=== PATIENT | female | born 1940 | race Caucasian/White ===

== ENCOUNTER 2019-08-28 10:07 | Emergency (ER) | payer MEDICARE, OTHER, SELFPAY ==
[2019-08-28 10:11] VITALS: BP 187/85; PULSE 104; RESP 16; TEMP 36.9; O2SAT 97; BMI 30.7
--- NOTE | 2019-08-28 10:24 | CT_ITS ---
WS: [id number] CT scan of the abdomen and pelvis with IV contrast. Additional two-dimensional coronal and sagittal reconstruction was performed. 08/28/2019 Clinical Data: DIVERTICULOSIS Comparison: CT abdomen and pelvis, 04/08/2016. DLP: 859.[address] scans at [facility] use at least one of these dose optimization techniques: automat ed exposure control; mA and/or kV adjustment per patient size (includes targeted exams where dose is matched to clinical indication); or iterative reconstruction. Findings: The lower lungs show no nodules, masses or effusions. The liver, gallbladder, spleen, adrenal glands and pancreas are normal. There are 2 incidental cysts in the right lobe of the liver unchanged. The kidneys show equal bilateral contrast excretion with no cyst or masses. The abdominal aorta is normal in size with calcification in the wall. No appendicitis or diverticulitis is seen. The stomach and colon are unremarkable. There are air-flui d levels in the small bowel which can be seen with gastroenteritis. No abscess, adenopathy, ascites, mass, obstruction or free air is seen. The bladder is unremarkable. The uterus is absent. There is a small fat-containing right inguinal her giovanna. The bones of the lower thorax, lumbar spine, pelvis, and hips are not remarkable. CT/CT abdomen pelvis w con* 20022 Impression: 1. Scattered air-fluid levels in the small bowel which can be seen with gastroe nteritis. 2. Hysterectomy.
[2019-08-28 10:26] VITALS: BP 187/85; RESP 17; O2SAT 95
--- NOTE | 2019-08-28 10:26 | ED_ITS ---
HPI - General Adult General: Chief complaint: Abdominal Pain Stated complaint: soft stools Time Seen by Provider: 08/28/19 10:09 History of Present Illness: HPI narrative: Patient comes in with complaints of a greasy foul-smelling yellow stool over the last couple days. Imodium not helping with the loose stool. Denies fever chills abdominal pain. No new medications or change in diet no exposure to any illnesses. MD complaint: Diarrhea Onset (ago): day(s) (2) Associated symptoms: Deny chest pain, decreased appetite, dyspnea, fevers/chills , headache(s), nausea, rash, vomiting or weakness Review of Systems Const: Denies: fever, chills or body aches Eyes: Denies: change in vision or blurry vision ENMT: Denies: throat pain or nasal congestion Card: Denies: chest pain or shortness of breath on exertion Resp: Denies: shortness of breath, productive cough or non-productive cough GI: Reports: diarrhea, change in bowel habits, change in stool character ([place] and yellow) and other; Denies: nausea or vomiting Musc: Denies: extremity pain Skin/Breast: Denies: rash Neuro: Denies: headache Psych: Denies: anxiety or depression Scott/Lymph: Denies: easy bruising PFSH ED PFSH: Medical History (Updated 07/31/19 @ 14:30 by Tara Meng MD) Chest pain at rest CKD (chronic kidney disease) HTN (hypertension) Varicose veins of left lower extremity with other complications Social History Smoking and tobacco status: former smoker History of recent travel: No Physical Exam Const: COMMON NORMALS: no apparent distress, average body habitus and oriented x3 HENMT: COMMON NORMALS: normocephalic HEAD & SCALP: normal to inspection and normocephalic FACE & SINUS: normal facial exam Eye: COMMON NORMALS: conjunctivae normal GENERAL EYE: normal appearance of both eyes CONJUNCTIVA: Yes conjunctivae normal Neck/C-Spine: COMMON NORMALS: no JVD Chest: COMMONS NORMALS: inspection of chest normal Resp: COMMON NORMALS: normal respiratory effort and clear to auscultation bilaterally AUSCULTATION: clear to auscultation bilaterally Cardio: COMMON NORMALS: no JVD, regular rate and regular rhythm RATE: regular rate RHYTHM: regular rhythm GI: COMMON NORMALS: normal to inspection, nondistended, normoactive bowel sounds Extremity: COMMON NORMALS: normal to inspection and full ROM Neuro: COMMON NORMALS: oriented x3 Course Vital Signs: Vital signs: Vital Signs Temperature 98.4 F 08/28/19 10:11 Pulse Rate 104 H 08/28/19 10:11 Respiratory Rate 17 08/28/19 10:26 Blood Pressure 187/85 08/28/19 10:26 Pulse Oximetry 95 08/28/19 10:26 MDM - General Adult MDM Narrative: Medical decision making narrative: Will premedicate patient she had a allergic reaction to contrast back in 1989 discussed process with the patient patient is okay with Lab Data: Labs: Lab Results 08/28/19 Range/Units 10:32 WBC 7.9 (4.0-10.0) 10^3/ uL RBC 5.16 (4.1-5.3) 10^6/u L Hgb 15.2 (11.5-15.3) g/dL Hct 46.2 (37.0-47.0) % MCV 89.5 (81-99) fL MCH 29.5 (28.0-34.0) pg MCHC 32.9 (30.0-36.0) g/dL RDW 12.4 (12.1-15.1) % Plt Count 267 (130-400) 10^3/c mm MPV 9.5 (7.4-10.4) fL Neut % (Auto) 80.3 % Lymph % (Auto) 11.2 % [place] % (Auto) 7.5 % Eos % (Auto) 0.3 % Baso % (Auto) 0.3 % Neut # (Auto) 6.4 (1.8-7.7) 10^3/u L Lymph # (Auto) 0.9 (0.8-4.8) 10^3/u L Sanborn # (Auto) 0.6 (0.2-0.9) 10^3/u L Eos # (Auto) 0.0 (0.0-0.8) 10^3/u L Baso # (Auto) 0.0 (0.0-0.1) 10^3/u L Nucleated RBC % (a uto) 0 % Nucleated RBCs # 0.0 /100WBC Discharge Plan Discharge Prescriptions: No Action furosemide [Lasix] 20 mg tablet 20 mg PO DAILY PRNRF: 0 potassium chloride 10 mEq capsule, extended release 10 meq PO DAILY PRNRF: 0 amlodipine 10 mg tablet 10 mg PO DAILY 90 Days Qty: 90 RF: 3 metoprolol succinate [Toprol XL] 25 mg tablet extended release 24 hr 25 mg PO DAILY 30 Days Qty: 30 RF: 12 Coding Level of Care Code ED Fish Roe Technician for Chg Fwd Exam Comprehensive
[2019-08-28 10:37] LABS: Basophils % 0.3 %; Eosinophils % 0.3 %; Hematocrit 46.2 % (37.0-47.0); Hemoglobin 15.2 g/dL (11.5-15.3); Lymphocytes # 0.9 10^3/uL (0.8-4.8); Lymphocytes % 11.2 %; Mean Corpuscular HGB Conc 32.9 g/dL (30.0-36.0); Mean Corpuscular Hemoglobin 29.5 pg (28.0-34.0); Mean Corpuscular Volume 89.5 fL (81-99); Mean Platelet Volume 9.5 fL (7.4-10.4); Monocytes # 0.6 10^3/uL (0.2-0.9); Monocytes % 7.5 %; Neutrophils # 6.4 10^3/uL (1.8-7.7); Neutrophils % 80.3 %; Nucleated Red Blood Cells % 0 %; Platelet Count 267 10^3/cmm (130-400); Red Blood Count 5.16 10^6/uL (4.1-5.3); Red Cell Distribution Width 12.4 % (12.1-15.1); White Blood Count 7.9 10^3/uL (4.0-10.0)
[2019-08-28 10:55] LABS: Alanine Aminotransferase 22 U/L (0-33); Alkaline Phosphatase 93 IU/L (35-105); Anion Gap 17.7 (5-19); Aspartate Amino Transferase 21 U/L (0-32); Blood Urea Nitrogen 22 mg/dL (8-23); Calcium 9.7 mg/dL (8.5-10.5); Carbon Dioxide 23 mmol/L (22-29); Chloride 103 mmol/L (98-107); Glucose 144 mg/dL (65-115); Osmolality Calculated 287 mOsm/kg (285-295); Potassium 4.7 mmol/L (3.5-5.1); Sodium 139 mmol/L (136-145); Total Bilirubin 0.4 mg/dL (0.15-1.2)
[2019-08-28 11:00] LABS: Magnesium 1.9 mg/dL (1.7-2.3)
[2019-08-28] MEDS: diphenhydrAMINE 50 mg/mL SDV 1mL 25 MG IVP (11:04)
[2019-08-28] MEDS: iodixanol 320 mg/mL 100mL Btl IV (11:22)
[2019-08-28 11:59] LABS: Add Urine Microscopic? NO
[2019-08-28 12:03] LABS: Bilirubin Urine Neg (NEGATIVE); Blood Urine Neg (Negative); Glucose Urine UA Norm (Normal); Ketones Urine Negative (Negative); Leukocyte Esterase Urine Negative (Negative); Nitrate Urine Negative (Negative); Protein Urine Neg (Negative); Specific Gravity, Urine 1.005 (1.005-1.030); Urine Appearance Clear (CLEAR); Urine Color Yellow (Yellow); Urobilinogen Urine Norm (Negative); pH Urine 5 (5-7)
[2019-08-28 12:26] VITALS: RESP 17; O2SAT 97
== END 2019-08-28 12:26 | disposition home or self-care (01) ==
PROVIDERS: Emergency Provider Nurse Practitioner Family; Family Provider Nurse Practitioner Family
DX: R10.9 Unspecified abdominal pain (principal); R19.7 Diarrhea, unspecified; I12.9 Hypertensive chronic kidney disease with stage 1 through stage 4 chronic kidney disease, or unspecified chronic kidney disease; N18.9 Chronic kidney disease, unspecified; Z91.041 Radiographic dye allergy status
CPT/HCPCS: 12345; 36415; 74177; 80053; 81003; 83735; 85025; 96374; 96375; 99282; 99283; J1200; J2930; Q9967

== ENCOUNTER → 2020-10-20 15:48 | Outpatient (BNVA) | payer MEDICARE, SELFPAY | PROVIDERS: Family Provider Nurse Practitioner Family; PCP Nurse Practitioner; Visit Provider Nurse Practitioner Family | DX: M25.561 Pain in right knee (principal); I10 Essential (primary) hypertension; M25.461 Effusion, right knee; M17.11 Unilateral primary osteoarthritis, right knee; Z12.31 Encounter for screening mammogram for malignant neoplasm of breast | CPT/HCPCS: 73562; 80053; 80061; 84443; 85025 ==

== ENCOUNTER → 2021-04-27 09:37 | Outpatient (BNVA) | payer MEDICARE, SELFPAY | PROVIDERS: Family Provider Nurse Practitioner Family; PCP Nurse Practitioner Family; Visit Provider Orthopaedic Surgery | DX: Z20.822 Contact with and (suspected) exposure to COVID-19 (principal); Z01.818 Encounter for other preprocedural examination | CPT/HCPCS: 87635 ==

== ENCOUNTER → 2021-04-27 11:14 | Day surgery (SDC) | payer MEDICARE, SELFPAY | PROVIDERS: PCP Nurse Practitioner Family; Visit Provider Orthopaedic Surgery | DX: Z01.818 Encounter for other preprocedural examination (principal); M17.11 Unilateral primary osteoarthritis, right knee | CPT/HCPCS: 93005 ==

== ENCOUNTER → 2021-05-06 14:16 | Outpatient (BNVA) | payer MEDICARE, SELFPAY | PROVIDERS: Family Provider Nurse Practitioner Family; PCP Nurse Practitioner Family; Visit Provider Orthopaedic Surgery | DX: Z01.812 Encounter for preprocedural laboratory examination (principal); Z20.822 Contact with and (suspected) exposure to COVID-19 | CPT/HCPCS: 87635 ==

== ENCOUNTER → 2021-07-01 10:16 | Outpatient (BNVA) | payer MEDICARE, SELFPAY | PROVIDERS: Family Provider Nurse Practitioner Family; PCP Nurse Practitioner Family; Visit Provider Orthopaedic Surgery | DX: Z20.822 Contact with and (suspected) exposure to COVID-19 (principal); Z01.812 Encounter for preprocedural laboratory examination | CPT/HCPCS: 87635 ==

== ENCOUNTER 2021-07-06 15:03 | Observation (INO) | payer MEDICARE, SELFPAY ==
--- NOTE | 2021-04-27 11:14 | ECG_ITS ---
[facility] Test Date: 2021-04-27 Pat Name: Romana Garner Department: Room: Gender: Female Milieu Counselor: : 1940 Requested By: Tawnya Medina Order Number: [id number] Roberts MD: Abisai Berry M.D. Measurements Intervals [place] Rate: 96 P: 57 MN: 168 QRS: -36 QRSD: 87 T: 63 QT: 338 QTc: 428 Interpretive Statements SINUS RHYTHM LEFT AXIS DEVIATION [QRS AXIS < -30] POSSIBLE ANTERIOR MYOCARDIAL INFARCTION , PROBABLY OLD [30 ms Q WAVE IN V3/V4, OR R < 0.2 mV IN V4] No previous ECG available for comparison Electronically Signed On 04-27-2021 16:46:03 GOLF BALL TRIMMER by Abisai Berry M.D. [id number]
[2021-04-27 11:21] VITALS: BMI 31.1
--- NOTE | 2021-04-27 11:49 | ANES.PREANE2 ---
Pre-Anesthetic Assessment Pre-Anesthetic Assessment: Height/Weight: Height 1.65 m Weight 84.822 kg Preop Diagnosis: knee pain Proposed Procedure: Operation Date: 05/04/21 09:35 Proposed Procedures p Total Knee Arthroplasty 34483 M17.11(Right) - Rudy Jimenez MD Familial anesthetic complications: None Social: Social History: No alcohol and No tobacco Exam: Pre-Anes Outpt Exam: alert, oriented x 3, clear to auscultation bilaterally and regular rate & rhythm Airway: MP: 2 Dentition: Full CV/HEM: CV/HEM: HTN Comments: denies having had any history of Chest pain - EKG shows Q wave, seen by cardiology who wanted echo, but per patient insurance did not approve. Denies any chest pain, SOB, etc. Anesthetic Plan: ASA status: 3 Anesthesia: General and Regional (specify below) Risk of > 500 ml blood loss (7ml/kg in children): No PFSH Anesthesia PFSH: Medical History Chest pain at rest CKD (chronic kidney disease) HTN (hypertension) Varicose veins of left lower extremity with other complications Family History Mother , at 79 from CHF Diabetes CHF (congestive heart failure) Father , at 83 from [place] Diabetes Myocardial infarction Other Hypertension Social History Smoking and tobacco status: former smoker (1992) History of recent travel: No Data Anesthesia Cardiac Studies: No Data to Display
[2021-05-08 15:51] VITALS: BMI 31.1
--- NOTE | 2021-05-13 13:38 | PC.NURSE ---
PT JUST INFORMED ME SHE CANCELED THIS SURGERY WITH DR SANCHEZ'S OFFICE FOR TUESDAY
[2021-07-02 10:56] VITALS: BMI 31.1
[2021-07-02 11:32] LABS: Basophils % 0.3 %; Eosinophils # 0.1 10^3/uL (0.0-0.8); Eosinophils % 0.9 %; Hematocrit 43.8 % (37.0-47.0); Hemoglobin 14.9 g/dL (11.5-15.3); Lymphocytes # 1.3 10^3/uL (0.8-4.8); Lymphocytes % 21.6 %; Mean Corpuscular Hemoglobin 30.8 pg (28.0-34.0); Mean Corpuscular Volume 90.5 fl (81-99); Mean Platelet Volume 9.1 fL (7.4-10.4); Monocytes # 0.6 10^3/uL (0.2-0.9); Monocytes % 9.9 %; Neutrophils # 3.94 10^3/uL (1.8-7.7); Nucleated Red Blood Cells % 0 %; Platelet Count 286 10^3/cmm (130-400); Red Blood Count 4.84 10^6/uL (4.1-5.3); Red Cell Distribution Width 12.9 % (12.1-15.1); White Blood Count 5.9 10^3/uL (4.0-10.0)
[2021-07-02 11:49] LABS: Anion Gap 18.8 (5-19); Blood Urea Nitrogen 14 mg/dL (8-23); Calcium 8.1 mg/dL (8.5-10.5); Carbon Dioxide 20 mmol/L (22-29); Chloride 106 mmol/L (98-107); Glucose 99 mg/dL (65-115); Osmolality Calculated 293 mOsm/kg (285-295); Potassium 3.8 mmol/L (3.5-5.1); Sodium 141 mmol/L (136-145)
--- NOTE | 2021-07-02 12:22 | ANES.PREANE2 ---
Pre-Anesthetic Assessment Pre-Anesthetic Assessment: Height/Weight: Height 1.65 m Weight 84.822 kg Preop Diagnosis: knee pain Proposed Procedure: Operation Date: 07/06/21 07:00 Proposed Procedures p Total Knee Arthroplasty 58269 M17.11(Right) - Rudy Jimenez MD Was Beta Nabor taken within 24 hours: N/A Was Clonidine taken within 24 hours: N/A Social: Social History: No alcohol and No tobacco Exam: Pre-Anes Outpt Exam: alert, oriented x 3, clear to auscultation bilaterally and regular rate & rhythm Airway: Submandibular: WNL Cervical ROM: WNL MP: 2 History/ROS: No significant complaints Pulmonary: Pulmonary: None reported CV/HEM: CV/HEM: HTN : : None reported Hepatic: Hepatic: None reported GI: GI: None reported Metabolic: Metabolic: None reported Musc/skel: Musc/skel: OA/DJD Neuropsych: Neuropsych: None reported Anesthetic Plan: Anesthesia: Regional (specify below) (Spinal with Right Adductor Canal Block. ) Risk of > 500 ml blood loss (7ml/kg in children): Yes, adequate IV access and fluids planned PFSH Anesthesia PFSH: Medical History Chest pain at rest CKD (chronic kidney disease) HTN (hypertension) Varicose veins of left lower extremity with other complications Family History Mother , at 79 from CHF Diabetes CHF (congestive heart failure) Father , at 83 from [place] Diabetes Myocardial infarction Other Hypertension Social History History of recent travel: No Data Anesthesia CBC & Chem 7: 07/02/21 11:13 07/02/21 11:13 Other Labs: Laboratory Results - last 48 hr 07/02/21 07/02/21 11:13 11:13 WBC 5.9 RBC 4.84 Hgb 14.9 Hct 43.8 MCV 90.5 MCH 30.8 MCHC 34.0 RDW 12.9 Plt Count 286 MPV 9.1 Neut % (Auto) 67.0 Lymph % (Auto) 21.6 Sampson % (Auto) 9.9 Eos % (Auto) 0.9 Baso % (Auto) 0.3 Neut # (Auto) 3.94 Lymph # (Auto) 1.3 Sampson # (Auto) 0.6 Eos # (Auto) 0.1 Baso # (Auto) 0.0 Nucleated RBC % (auto) 0 Nucleated RBCs # 0.0 Sodium 141 Potassium 3.8 Chloride 106 Carbon Dioxide 20 L Anion Gap 18.8 BUN 14 Creatinine 0.7 GFR Calculation Not Reportable Glucose 99 Calculated Osmolality 293 Calcium 8.1 L Cardiac Studies: No Data to Display
[2021-07-06] VITALS (17 sets, daily range): BP systolic 105–169; BP diastolic 44–104; PULSE 70–121; RESP 16–20; TEMP 36.1–36.8; O2SAT 90–97
[2021-07-06] MEDS: sodium chloride 0.9% 1,000 ML 30 ML IV (06:00)
[2021-07-06] MEDS: oxyCODONE 20 mg ER (12 HR) Tablet PO (06:05)
[2021-07-06] MEDS: gabapentin 300 mg Capsule PO ×2 (06:05→20:50)
[2021-07-06] MEDS: CELEcoxib 200 mg Capsule 400 MG PO (06:05)
[2021-07-06] MEDS: acetaminophen 500 mg Tablet 1000 MG PO ×3 (06:05→23:12)
--- NOTE | 2021-07-06 07:05 | W.PM.OPSFHP ---
Same Day Surgery H&P Indication for Procedure/HPI DATE OF PROCEDURE: July 06, 2021 CHIEF COMPLAINT/INDICATIONFOR SURGICAL PROCEDURE: Osteoarthritis right knee here for right total knee arthroplasty PREOP DIAGNOSIS: OsteoarthritisRight knee PLANNED PROCEDURE: Operation Date: 07/06/21 07:00 Proposed Procedures p Total Knee Arthroplasty 97782 M17.11(Right) - Rudy Jimenez MD 81-year-old female with osteoarthritis right knee. Incomplete improvement with medications and injections. She has significant functional limitations can stand and walk for no more than 10 to 15 minutes at any time. She is here for elective total knee arthroplasty Medications/Allergies* Home Medications Medication Instructions Recorded Confirmed Type amlodipine 10 mg PO BEDTIME 07/06/21 07/06/21 History Allergies/Adverse Reactions Allergy/AdvReac Type Severity Reaction Status Date / Time atenolol Allergy Unknown Unknown Verified 07/06/21 05:50 gluten Allergy Unknown Unknown Verified 07/06/21 05:50 Iodinated Contrast Media Allergy Unknown Unknown Verified 07/06/21 05:50 losartan Allergy Unknown Unknown Verified 07/06/21 05:50 naproxen Allergy Unknown Unknown Verified 07/06/21 05:50 peanut Allergy Unknown Unknown Verified 07/06/21 05:50 Current Medications: Generic Name Dose Route Start Last Admin Trade Name Freq PRN Reason Stop Dose Admin Sodium Chloride 1,000 mls @ 30 mls/hr 07/06/21 05:45 07/06/21 06:00 Sodium Chloride 0.9% IV 07/07/21 05:44 30 mls/hr .Q24H IVAN Administration Pertinent History/Comorbid Conditions* Medical History (Updated 06/02/21 @ 11:35 by Rudy Jimenez MD) Chest pain at rest CKD (chronic kidney disease) HTN (hypertension) Varicose veins of left lower extremity with other complications Family History (Updated 07/31/19 @ 10:10 by Maribeth Colindres RN) Father, at 83 from [place] Mother, at 79 from CHF Diabetes Mother Father CHF (congestive heart failure) Mother Myocardial infarction Father Hypertension Social History History of recent travel: No Pertinent Exam Findings alert, oriented x 3, clear to auscultation bilaterally, regular rate & rhythm and operative site marked Recommendations Surgery/Procedure today Coding Level of Care Code Acute Supervisor Multifocal Lens for Maico Garcia
--- NOTE | 2021-07-06 07:12 | P.ANESUD_ITS ---
Pre-Anesthetic Update Pre-Anesthetic Assessment: Date of Surgery/Procedure: 07/06/21 Preop Elizabeth gnosis: OsteoarthritisRight knee Proposed Procedure: Operation Date: 07/06/21 07:00 Proposed Procedures p Total Knee Arthroplasty 45197 M17.11(Right) - Rudy Jimenez MD Any changes to Pre-Anesthetic Assessment?: No Last Intake: Intake Last Liquid Date 07/05/21 Last Liquid Time 19:00 Last Solid Date 07/05/21 Last Solid Time 17:00 Vitals: Temperature 98.2 F 07/06/21 05:51 Temperature Source Temporal Artery S can 07/06/21 05:51 Pulse Rate 121 H 07/06/21 05:51 Respiratory Rate 18 07/06/21 06:05 Respiratory Effort 07/06/21 06:05 Respiratory Depth Normal 07/06/21 06:05 Respiratory Patter n 07/06/21 06:05 Blood Pressure 169/104 07/06/21 05:51 Blood Pressure Doris n 125 07/06/21 05:51 Pulse Oximetry 95 07/06/21 06:05 Oxygen Delivery Me thod 07/06/21 05:51 Exam: Pre-Anes Outpt Exam: alert, oriented x 3, clear to auscultation bilaterally and regular rate & rhythm Cardiac Studies: No Data to Display
--- NOTE | 2021-07-06 07:29 | ANES.PROC ---
Anesthesia Procedures Procedure/Date: 07/06/21 Nerve Block ^: Nerve Block 1: Main Anesthesia: spinal anesthesia block Time Out Performed: Yes Consent: requested by attending/covering physician, from patient, risks and benefits reviewed and patient agrees to proceed Nerve block location: adductor canal (right) Anesthesia monitors applied: pulse oximetry, EKG, BP cuff and oxygen Nerve block position: supine Anesthetic Used: ropivicaine 0.5% Amount of anesthesia used (mL): 20 Ultrasound used to: recognize landmarks Nerve Stimulator Used?: No Interscalene/Femoral BLK: 4 stimuplex 21 g needle used for position and inplane approach and visualize local anesthetic spread Injection: neg aspiration of heme Patient Tolerated Procedure: well Complications: none
[2021-07-06] MEDS: ketorolac 30 mg/mL INJ IM (08:01)
[2021-07-06] MEDS: tranexamic acid 1,000 mg/10mL SDV 1000 MG IRRIGATION (08:02)
[2021-07-06] MEDS: EPINEPHrine 1 mg/mL INJ XX (08:02)
--- NOTE | 2021-07-06 09:11 | XR_ITS ---
WS: [id number] Exam: XR knee RT 1-2V 70823 Date/Time of Exam: 07/06/2021 9:14 AM Reason For Exam: Right Total Knee arthroplasty Comparison 10/20/2020. A total knee prosthesis has been placed and is in excellent position. Postoperative changes in the ad jacent soft tissues. XR/XR knee RT 1-2V 71643 IMPRESSION: 1. Total knee replacement in excellent position.
--- NOTE | 2021-07-06 09:11 | PM.OP ---
Operative Report Date of procedure: July 06, 2021 Pre-op Diagnosis: OsteoarthritisRight knee Post-op diagnosis: same Post-op Findings: Same Procedure Done: Right total knee arthroplasty Pathology: none sent Surgeon: Rudy Jimenez Anesthesia: Nerve Block (Spinal, adductor canal block) Estimated blood loss (mL): 100 Findings: Patient had eburnated bone over the medial femoral condyle medial tibial plateau patella and trochlea Condition: stable Disposition: PACU Procedure: The patient was taken to the operating room. Patient was given 1 g of tranexamic acid . The above anesthesia provided by the anesthesia service. A timeout was performed. The patient was prepped and draped in the usual fashion with the lower extremity exposed. A anterior incision was made, midline, from a point proximal to the patella to the distal tibial tubercle. The knee was entered through a medial parapatellar approach. The patella could be displaced laterally and the knee flexed. The patellar fat pad was resected to provide better visibility. Retractors were placed medially and laterally adjacent to the tibial plateau. The femoral canal was drilled in line with the longitudinal axis of the femur. Intramedullary femoral guide for used to make a distal femoral cut in 5 degrees of valgus, resecting 8 mm from the more prominent condyle. Next the extra medullary tibial guide was placed in alignment with the longitudinal axis of the tibia. The cutting guides were set to remove just over 9 mm from the high tibial plateau. The proximal tibia was then cut. The femoral measuring guide was then placed over the distal femur. Rotation was verified checking the relationship of the guide to the condyle and the trochlear groove. The femur was measured and cut for the desired femoral component. The desired tibial baseplate was then chosen. A trial reduction with the femur tibial baseplate and polyethylene was done, assuring that the knee was stable throughout full motion. Ligament balancing nothing more than a release of the deep medial collateral ligament.The tibia was prepared for the tibial baseplate. Patellar thickness was then measured. The patella was cut removing articular cartilage and prepared for appropriate size patellar button. surfaces were cleaned with a gentamicin solution. The femur tibia and patella were then press-fit into place. The posterior capsule and collateral ligaments were then injected with a solution of 100 mL of 0.2% ropivacaine, 1 mL of a 1:1000 epinephrine solution, 30 mg of Toradol, and 1 g of tranexamic acid. final polyethylene component was then snapped into place into the tibia. The extensor retinaculum was closed with a running 1 Stratafix.. The subcutaneous tissues were closed with 2-0 Vicryl and the skin was closed with a running 4-0 Stratafix. The wound was covered with a Dermabond Prinio dressing. It was covered with 4xrs and a compressive Tubigauae was applied. The patient was taken to recovery room in stable condition. [employer] total knee arthroplasty components were used includin) Size 4 triathalon cruciate retaining femoral component 2) Size 3 Tritanium tibial component 3) 32 mm /10 mm thickness Tritanium asymetric patella 4) Size 3/12 mm thickness CS tibial bearing insert
--- NOTE | 2021-07-06 14:25 | ANE.PACU2 ---
Inpatient post-anesthesia follow up: Airway intact: Yes Vital signs: Temperature 98 F Pulse Rate 70 Respiratory Rate 17 Blood Pressure 114/60 Pulse Oximetry 96 Oxygen Delivery Me thod Nasal Cannula Oxygen Flow Rate 3.0 Fraction of Inspir ed Oxygen Hydration adequate: Yes Nausea and vomiting: No Pain level: 2 Mental status: Baseline
[2021-07-06] MEDS: sodium chloride 0.9% 1,000 ML 100 ML IV (16:25)
[2021-07-06] MEDS: CELEcoxib 200 mg Capsule PO (17:10)
[2021-07-06] MEDS: oxyCODONE 5 mg IR Tab/Cap PO (19:26)
[2021-07-06] MEDS: amlodipine 10 mg Tablet PO (20:50)
[2021-07-07 00:41] VITALS: BP 122/62; PULSE 70; RESP 18; TEMP 36.5; O2SAT 90
[2021-07-07] MEDS: sodium chloride 0.9% 1,000 ML 100 ML IV (03:30)
[2021-07-07 04:00] VITALS: BP 120/68; PULSE 68; RESP 18; TEMP 36.6; O2SAT 90
[2021-07-07] MEDS: CELEcoxib 200 mg Capsule PO (06:26)
[2021-07-07] MEDS: acetaminophen 500 mg Tablet 1000 MG PO (06:27)
[2021-07-07 07:25] LABS: Hemoglobin 12.7 g/dL (11.5-15.3)
--- NOTE | 2021-07-07 07:30 | P.DS_ITS ---
Discharge Providers Date of Admission: 07/06/21 15:03 Date of Discharge: July 07, 2021 Attending Provider at Admission: Rudy Jimenez MD Attending Provider at Discharge: Rudy Jimenez MD Primary Care Provider: JENNIE Maldonado Diagnoses at Discharge Discharge Diagnosis (1) Status post right knee replacement: Status: Acute (2) Osteoarthritis of right knee: Status: Resolved Reason for Visit Reason for Visit: Primary osteoarthritis of right knee Hospital Course Hospital Course The patient tolerated surgery well. They remained hemodynamically stable. They was begun on aspirin and foot pumps for DVT prophylaxis. The patient was mobilized with therapy beginning the day of surgery and by the first postoperative day independent with the walker. As the pain was adequately controlled and they were fully mobile they were discharged home. Physical Exam Narrative: EXAM NARRATIVE: On the day of discharge the knee incision was clean. They had no drainage. There is minimal swelling in the thigh and knee and the calf. No distal neurovascular deficits were noted Urinary Catheter Management^: Lewis: Cath Placed During This Visit: yes Urinary Catheter Date of Insertion: 07/06/21 Urinary Catheter Time of Insertion: 07:28 Discharge Data Data Completed and Pending: Completed Studies During Hospitalization Category Date Time Status XR knee RT 1-2V 7 3560 Routine Exams 07/06/21 09:11 Completed Labs from last 24 hours 07/07/21 06:57 Hgb 12.7 Vitals: Last Vital Signs Temp 97.8 F 07/07/21 04:00 Pulse 68 07/07/21 04:00 Resp 18 07/07/21 04:00 BP 120/68 07/07/21 04:00 Pulse Ox 90 07/07/21 04:00 Discharge Plan Discharge Patient Disposition: Home Condition: Stable Prescriptions: New oxycodone 5 mg Tablet 5 mg PO Q4H PRN (Reason: Moderate Pain) 7 Days Qty: 40 RF: 0 acetaminophen 500 mg Tablet 1,000 mg PO Q8H 14 Days Qty: 84 RF: 0 aspirin 325 mg Tablet,Delayed Release (Dr/Ec) 325 mg PO DAILY 30 Days RF: 0 celecoxib 200 mg Capsule 200 mg PO Q12H 14 Days Qty: 28 RF: 0 gabapentin 300 mg Capsule 300 mg PO BID@0900,2100 7 Days RF: 0 Continued amlodipine 10 mg tablet 10 mg PO BEDTIME RF: 0 Discharge Orders: Discharge Order (Routine); Ordered 07/07/21 Ordered By: Rudy Jimenez Referrals: Rudy Jimenez MD [Physician] - 07/10/21 8:30 am Discharge Diet: Advance as tolerated Discharge Activity: Limit activity as instructed Patient Instructions: Opioid Safety Activity Restrictions/Additional Instructions: Okay to shower Keep Tubigauze sleeve in place for swelling. Okay to remove for hygiene. Apply FirstIce up to 20 min/hr for pain and swelling Take Celebrex twice a day for the next 15 days for pain , discontinue other anti-inflammatories Take Neurontin twice a day for 7 days. Take Tylenol 500mg (1-2 tabs) as needed 3 times a day for mild pain take [] for breakthrough pain. Exercises per physical therapy. May weight-bear as tolerated on total knee arthroplasty Discharge Attestations Time Spent in Discharge Care*: other Quality Metrics Clinical Quality Measures During this hospital stay, did patient experience: None Coding Level of Care Code Acute [facility] note Diagnoses Status post right knee replacement Z96.651 Osteoarthritis of right knee M17.11
[2021-07-07 07:50] VITALS: RESP 18; O2SAT 95
[2021-07-07] MEDS: aspirin 325 mg EC Tablet PO (07:50)
[2021-07-07] MEDS: oxyCODONE 5 mg IR Tab/Cap PO (07:50)
[2021-07-07] MEDS: gabapentin 300 mg Capsule PO (07:51)
[2021-07-07 10:21] VITALS: BP 134/73; PULSE 82; RESP 18; TEMP 36.6; O2SAT 94
--- NOTE | 2021-07-07 10:33 | PC.NURSE ---
discharge instructions given to patient and patient verbalized understanding of instructions. patient's home walker delivered to patient. patient called family to come get her. we are currently waiting on family to arrive.
--- NOTE | 2021-07-07 10:40 | PC.NURSE ---
Faxed [facility] to [facility]NANDE[facility]
--- NOTE | 2021-07-07 11:57 | PC.NURSE ---
patient taken to private vehicle via wheelchair by staff.
[2021-07-07 11:58] VITALS: BP 134/73; PULSE 82; RESP 18; TEMP 36.6; O2SAT 94
== END 2021-07-07 11:58 | disposition home or self-care (01) ==
PROVIDERS: Anesthesiology; Admitting Provider Orthopaedic Surgery; PCP Nurse Practitioner Family; Visit Provider Orthopaedic Surgery
PROC: (CPT 27447; principal; 2021-07-06 07:00)
DX: M17.11 Unilateral primary osteoarthritis, right knee (principal); I12.9 Hypertensive chronic kidney disease with stage 1 through stage 4 chronic kidney disease, or unspecified chronic kidney disease; N18.9 Chronic kidney disease, unspecified; Z82.49 Family history of ischemic heart disease and other diseases of the circulatory system; Z83.3 Family history of diabetes mellitus; Z87.891 Personal history of nicotine dependence
CPT/HCPCS: 27447; 36415; 51702; 64447; 73560; 76942; 80048; 85018; 85025; 97110; 97116; 97161; 97165; 97530; C1776; G0378; J0171; J0690; J1580; J1885; J2370; J2704; J2795; J7030

== ENCOUNTER → 2021-08-26 09:26 | Outpatient (BNVA) | payer MEDICARE, SELFPAY | PROVIDERS: PCP Nurse Practitioner Family; Visit Provider Orthopaedic Surgery | DX: Z96.651 Presence of right artificial knee joint (principal) | CPT/HCPCS: 73562 ==

== ENCOUNTER → 2021-09-22 09:13 | Outpatient (BNVA) | payer MEDICARE, SELFPAY | PROVIDERS: PCP Nurse Practitioner Family; Visit Provider Orthopaedic Surgery | DX: Z96.651 Presence of right artificial knee joint (principal); Z87.891 Personal history of nicotine dependence; M25.562 Pain in left knee | CPT/HCPCS: 99212 ==

== ENCOUNTER 2021-10-04 11:13 | Emergency (ER) | payer MEDICARE, SELFPAY ==
[2021-10-04] VITALS (12 sets, daily range): BP systolic 113–154; BP diastolic 52–88; PULSE 72–123; RESP 16–20; TEMP 36.7–37; O2SAT 89–96; BMI 31.1
--- NOTE | 2021-10-04 11:39 | ED_ITS ---
HPI - Nausea/Vomiting/Diarrhea General: Chief complaint: Nausea/Vomiting/Diarrhea Stated complaint: N/V Says shes throwing up worms Time Seen by Provider: 10/04/21 11:38 History of Present Illness: Ms. Garner is a 81-year-old lady with significant past medical history of hypertension who presents to the emergency department due to nausea, vomiting, and concern over infection. She reports over the past few days abdominal discomfort in bilateral upper lateral regions of the abdomen. This is aching in quality and now moderate intensity. Overall the course has been worsening. Additionally over the past 12 hours or so she has had multiple episodes of emesis and has noticed which she identifies as worms. She describes a white approximately 5 segmented piece of 1 as well as little threadlike structures. She additionally notes constipation and abdominal distention. She reports thread worms in June and was treated with medications which helped his symptoms though she did require redose. She denies recent foreign travel or immunosuppression. No prior episodes previous to June. She has mild generalized malaise and chills as well as nasal congestion. No other specific changes in health, exacerbating, or alleviating factors identified. Onset (ago): day(s) Description of vomiting: other Associated nausea: Yes Associated abdominal pain: Yes Location of pain: LUQ and RUQ Pain consistency: constant Severity: moderate Quality: cramping and aching Associated symtoms: Reports nausea Review of Systems General: Reports: 10 or more systems reviewed and unremarkable except in HPI and below GI: Reports: nausea PFSH ED PFSH: Medical History Chest pain at rest CKD (chronic kidney disease) HTN (hypertension) Varicose veins of left lower extremity with other complications Family History Mother , at 79 from CHF Diabetes CHF (congestive heart failure) Father , at 83 from [place] Diabetes Myocardial infarction Other Hypertension Social History Smoking and tobacco status: former smoker (1992) History of recent travel: No Physical Exam Const: COMMON NORMALS: alert GENERAL APPEARANCE: cooperative and well developed HENMT: COMMON NORMALS: normocephalic and atraumatic HEAD & SCALP: normocephalic and atraumatic Eye: COMMON NORMALS: conjunctivae normal CONJUNCTIVA: Yes conjunctivae normal SCLERA: sclerae normal Neck/C-Spine: COMMON NORMALS: supple GENERAL: Yes trachea midline Resp: COMMON NORMALS: clear to auscultation bilaterally EFFORT & INSPECTION: Yes able to speak in complete sentences AUSCULTATION: clear to auscultation bilaterally Cardio: COMMON NORMALS: regular rhythm RATE: tachycardic RHYTHM: regular rhythm GI: COMMON NORMALS: Soft to palpation PALPATION: Yes Soft to palpation, Yes Tenderness to palpation present (GI), No Guarding due to palpation present (GI) and No Rigid due to palpation PERCUSSION: normal to percussion Extremity: GENERAL: Yes normal exam except as noted and No edema Neuro: COMMON NORMALS: moves all extremities SENSORIUM/ORIENTATION: Yes alert and No Orientation impaired Psych: COMMON NORMALS: mental status grossly normal and Normal thought process present THOUGHT PROCESS: Normal thought process present Course ED course: - Patient was seen and evaluated by me at bedside - Patient placed on cardiac monitors, IV access obtained - Initial evaluation notable for exam as above - Labs personally interpreted by me - 1 L fluid bolus given, antiemetic given - Labs notable for hemoconcentration with mild elevation in white blood cell count and hemoglobin. Metabolic panel with mild dehydration without acute electrolyte derangement. Urinalysis not concerning for urinary tract infection. - Imaging notable for large bowel obstruction with concern for obstructing mass/cancer. Upon clarification of history patient reports many years since la st colonoscopy. 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 - The results of ED evaluation were discussed with the patient including plan for transfer due to requirement for level of care not available, specifically we do not have general surgery on-call. - Patient discussed with Dr. Hubbard of general surgery at [facility] in [place] who accepted the patient as a transfer. - Patient transferred from our emergency department via EMS in satisfactory condition. Note: Click bubbles or prepopulated leon in note writing are used for assistance with data collection and billing and are inherently more limited than narrative and other text portions of this note. Please use narrative for additional clinical history and defer to narrative/free test for any case of contradictory information. If information appears in only free text or click bubble it should be considered present or absent as reported. Please contact note marketing underwriter for clarifications of clinical information or contradictory information. MDM is a brief summary, contradictory or erroneous seeming information should be clarified and full note should be reviewed. Vital Signs: Vital signs: Vital Signs Temperature 98.1 F 10/04/21 18:33 Pulse Rate 72 10/04/21 18:33 Respiratory Rate 16 10/04/21 18:33 Blood Pressure 136/59 10/04/21 18:33 Pulse Oximetry 91 10/04/21 18:33 MDM - Nausea/Vomiting/Diarrhea Medical Decision Making 81-year-old lady presenting with concern over abdominal pain, constipation, nausea, vomiting and possible parasitic infection found to have obstructing sigmoid colon mass. As we do not have general surgery on-call patient transferred to [facility] in [place] for surgical consultation and defi nitive treatment. Medical Records I reviewed the patient's medical records. Lab Data I reviewed the patient's lab results. : 10/04/21 12:20 10/04/21 12:20 Radiology Impressions Abdomen/Pelvis CT 10/04/21 12:06 IMPRESSION: 1. There is a short segment of mucosal thickening in the sigmoid colon highly suspicious for neoplasm. Proximal large bowel is dilated with air-fluid levels, consistent with large bowel obstruction. 2. Small hiatal hernia. There is fluid in the esophagus consistent with reflux. 3. There is heterogeneous density near the gallbladder fundus. This is nonspecific. Consider right upper quadrant ultrasound for further evaluation as clinically warranted. ADDENDUM: 10/04/21 [id number] CRITICAL RESULT: The study was personally discussed on the telephone with David Gallardo on 10/04/2021 2:58 PM CDT. The results were understood and acknowledged. Laboratory Results WBC 11.6 10^3/uL (4.0-10.0) H 10/04/21 12:20 RBC 5.70 10^6/uL (4.1-5.3) H 10/04/21 12:20 Hgb 16.5 g/dL (11.5-15.3) H 10/04/21 12:20 Hct 49.9 % (37.0-47.0) H 10/04/21 12:20 MCV 87.5 fl (81-99) 10/04/21 12:20 MCH 28.9 pg (28.0-34.0) 10/04/21 12:20 MCHC 33.1 g/dL (30.0-36.0) 10/04/21 12:20 RDW 12.9 % (12.1-15.1) 10/04/21 12:20 Plt Count 352 10^3/cmm (130-400) 10/04/21 12:20 MPV 10.1 fL (7.4-10.4) 10/04/21 12:20 Neut % (Auto) 83.0 % 10/04/21 12:20 Lymph % (Auto) 5.0 % 10/04/21 12:20 [place]verse % (Auto) 11.4 % 10/04/21 12:20 Eos % (Auto) 0.0 % 10/04/21 12:20 Baso % (Auto) 0.3 % 10/04/21 12:20 Neut # (Auto) 9.62 10^3/uL (1.8-7.7) H 10/04/21 12:20 Lymph # (Auto) 0.6 10^3/uL (0.8-4.8) L 10/04/21 12:20 Converse # (Auto) 1.3 10^3/uL (0.2-0.9) H 10/04/21 12:20 Eos # (Auto) 0.0 10^3/uL (0.0-0.8) 10/04/21 12:20 Baso # (Auto) 0.0 10^3/uL (0.0-0.1) 10/04/21 12:20 Nucleated RBC % (auto) 0 % 10/04/21 12:20 Nucleated RBCs # 0.0 /100WBC 10/04/21 12:20 Sodium 137 mmol/L (136-145) 10/04/21 12:20 Potassium 4.2 mmol/L (3.5-5.1) 10/04/21 12:20 Chloride 99 mmol/L (98-107) 10/04/21 12:20 Carbon Dioxide 21 mmol/L (22-29) L 10/04/21 12:20 Anion Gap 21.2 (5-19) H 10/04/21 12:20 BUN 23 mg/dL (8-23) 10/04/21 12:20 Creatinine 0.9 mg/dL (0.5-0.9) 10/04/21 12:20 GFR Calculation Not Reportable 10/04/21 12:20 Glucose 172 mg/dL (65-115) H 10/04/21 12:20 Calculated Osmolality 292 mOsm/kg (285-295) 10/04/21 12:20 Calcium 8.9 mg/dL (8.5-10.5) 10/04/21 12:20 Total Bilirubin 0.7 mg/dL (0.15-1.2) 10/04/21 12:20 AST 29 U/L (0-32) 10/04/21 12:20 ALT 26 U/L (0-33) 10/04/21 12:20 Alkaline Phosphatase 125 IU/L (35-105) H 10/04/21 12:20 NT-Pro-B Natriuret Pep 389 pg/mL (0-450) 10/04/21 12:20 Total Protein 7.9 g/dL (6.6-8.7) 10/04/21 12:20 Albumin 4.6 g/dL (3.5-5.2) 10/04/21 12:20 Globulin 3.3 g/dL (1.3-4.6) 10/04/21 12:20 Lipase 14 U/L (13-60) 10/04/21 12:20 TSH 2.03 uIU/mL (0.27-4.20) 10/04/21 12:20 Urine Color Yellow (Yellow) 10/04/21 14:55 Urine Appearance Clear (CLEAR) 10/04/21 14:55 Urine pH 5 (5-7) 10/04/21 14:55 Ur Specific [place] 1.010 (1.005-1.030) 10/04/21 14:55 Urine Protein Trace (Negative) 10/04/21 14:55 Urine Glucose (UA) Norm (Normal) 10/04/21 14:55 Urine Ketones Negative (Negative) 10/04/21 14:55 Urine Blood Neg (Negative) 10/04/21 14:55 Urine Nitrate Negative (Negative) 10/04/21 14:55 Urine Bilirubin 1+ (Negative) H 10/04/21 14:55 Urine Urobilinogen 1 mg/dL (Negative) H 10/04/21 14:55 Ur Leukocyte Esterase Negative (Negative) 10/04/21 14:55 Discharge Plan Discharge Patient Disposition: Xfer Short-Term Hosp Clinical Impression: Large bowel obstruction, Mass of colon, Dehydration, Suspected malignant neoplasm Condition: Stable Referrals: Rossana Brizuela FNP-C [Primary Care Provider] - Coding Level of Care Code ED Box Attacher for Chg Fwd Exam Comprehensive
--- NOTE | 2021-10-04 12:06 | CTR_ITS ---
PROCEDURE INFORMATION: Exam: CT Abdomen And Pelvis With Contrast Exam date and time: 10/04/2021 2:22 PM Age: 81 years old Clinical indication: Abdominal pain; Localized; Upper; Additional info: Upper abdominal pain, n/v, reports worms in vomit TECHNIQUE: Imaging protocol: Computed tomography of the abdomen and pelvis with contrast. Radiation optimization: All CT scans at this facility use at least one of these dose optimization techniques: automated exposure control; mA and/or kV adjustment per patient size (includes targeted exams where dose is matched to clinical indication); or iterative reconstruction. Contrast material: OMNI 300; Contrast volume: 95 ml; Contrast route: INTRAVENOUS (IV); COMPARISON: CT abdomen pelvis w con* [id number] 08/28/2019 11:35 AM RADIATION DOSE METRICS: Total DLP (mGy-cm): 1679.56 FINDINGS: Mediastinal space: There is fluid in the esophagus. Diaphragm: Small hiatal hernia. Liver: Normal. No mass. Gallbladder and bile ducts: There is some heterogeneous density near the gallbladder fundus measuring 13 mm in the transverse dimension. Pancreas: Mild fatty atrophy of the pancreas. Spleen: Normal. No splenomegaly. Adrenal glands: Normal. No mass. Kidneys and ureters: Normal. No hydronephrosis. Stomach and bowel: There are air-fluid levels in the colon. Proximal colon is fluid-filled and dilated. There is a short segment of irregular mucosal thickening in the sigmoid colon measuring 4.2 cm along the longitudinal dimension of the colon. The rectosigmoid colon is collapsed distal to this lesion. Appendix: No evidence of appendicitis. Intraperitoneal space: Unremarkable. No free air. No significant fluid collection. Arteries: Multi-vessel atherosclerotic disease. Lymph nodes: Unremarkable. No enlarged lymph nodes. Urinary bladder: Unremarkable as visualized. Reproductive: The uterus is not visualized, consistent with hysterectomy. Bones/joints: Unremarkable. No acute fracture. Soft tissues: Unremarkable. CT/CT abdomen pelvis w con* [id number] IMPRESSION: 1. There is a short segment of mucosal thickening in the sigmoid colon highly suspicious for neoplasm. Proximal large bowel is dilated with air-fluid levels, consistent with large bowel obstruction. 2. Small hiatal hernia. There is fluid in the esophagus consistent with reflux. 3. There is heterogeneous density near the gallbladder fundus. This is nonspecific. Consider right upper quadrant ultrasound for further evaluation as clinically warranted.
[2021-10-04] MEDS: lactated ringers 1,000 ML 999 ML IV (12:26)
[2021-10-04] MEDS: ondansetron 2 mg/ML SDV 2 mL 4 MG IVP (12:35)
[2021-10-04] MEDS: diphenhydrAMINE 50 mg/mL SDV 1mL 25 MG IVP (12:38)
[2021-10-04 13:05] LABS: Basophils % 0.3 %; Hematocrit 49.9 % (37.0-47.0); Hemoglobin 16.5 g/dL (11.5-15.3); Lymphocytes # 0.6 10^3/uL (0.8-4.8); Mean Corpuscular HGB Conc 33.1 g/dL (30.0-36.0); Mean Corpuscular Hemoglobin 28.9 pg (28.0-34.0); Mean Corpuscular Volume 87.5 fl (81-99); Mean Platelet Volume 10.1 fL (7.4-10.4); Monocytes # 1.3 10^3/uL (0.2-0.9); Monocytes % 11.4 %; Neutrophils # 9.62 10^3/uL (1.8-7.7); Nucleated Red Blood Cells % 0 %; Platelet Count 352 10^3/cmm (130-400); Red Cell Distribution Width 12.9 % (12.1-15.1); White Blood Count 11.6 10^3/uL (4.0-10.0)
[2021-10-04 13:22] LABS: Alanine Aminotransferase 26 U/L (0-33); Albumin Level 4.6 g/dL (3.5-5.2); Alkaline Phosphatase 125 IU/L (35-105); Anion Gap 21.2 (5-19); Aspartate Amino Transferase 29 U/L (0-32); Blood Urea Nitrogen 23 mg/dL (8-23); Calcium 8.9 mg/dL (8.5-10.5); Carbon Dioxide 21 mmol/L (22-29); Chloride 99 mmol/L (98-107); Globulin 3.3 g/dL (1.3-4.6); Glucose 172 mg/dL (65-115); Lipase 14 U/L (13-60); Osmolality Calculated 292 mOsm/kg (285-295); Potassium 4.2 mmol/L (3.5-5.1); Sodium 137 mmol/L (136-145); Total Bilirubin 0.7 mg/dL (0.15-1.2); Total Protein 7.9 g/dL (6.6-8.7)
[2021-10-04 13:27] LABS: NT Pro B Type Natriuretic Pept 389 pg/mL (0-450); Thyroid Stimulating Hormone 2.03 uIU/mL (0.27-4.20)
[2021-10-04] MEDS: iohexol 300 mg/mL 100 mL Btl IV (14:23)
[2021-10-04 15:23] LABS: Add Urine Microscopic? NO; Charge for UA Resulting for Rev
[2021-10-04 15:49] LABS: Glucose Urine UA Norm (Normal); Ketones Urine Negative (Negative); Protein Urine Trace (Negative); Urine Appearance Clear (CLEAR); Urine Color Yellow (Yellow); pH Urine 5 (5-7)
[2021-10-04 15:50] LABS: Bilirubin Urine 1+ (Negative); Blood Urine Neg (Negative); Leukocyte Esterase Urine Negative (Negative); Nitrate Urine Negative (Negative); Urobilinogen Urine 1 mg/dL (Negative)
== END 2021-10-04 18:34 | disposition short-term general hospital (02) ==
PROVIDERS: Emergency Provider Emergency Medicine; PCP Nurse Practitioner Family
DX: K56.609 Unspecified intestinal obstruction, unspecified as to partial versus complete obstruction (principal); I10 Essential (primary) hypertension; K59.00 Constipation, unspecified; Z87.891 Personal history of nicotine dependence; K63.9 Disease of intestine, unspecified; E86.0 Dehydration
CPT/HCPCS: 74177; 80053; 81003; 83690; 83880; 84443; 85025; 96361; 96374; 96375; 99285; J1200; J2405; J2930; Q9967

== ENCOUNTER 2021-11-18 11:39 | Oncology outpatient (recurring) (ONCR) | payer MEDICARE, SELFPAY | END 2021-12-17 23:59 | disposition home or self-care (01) | LOC: ONCMED 11:40 | PROVIDERS: PCP Nurse Practitioner Family; Visit Provider Internal Medicine Hematology & Oncology | DX: C18.7 Malignant neoplasm of sigmoid colon (principal); I83.892 Varicose veins of left lower extremity with other complications; I10 Essential (primary) hypertension; M17.11 Unilateral primary osteoarthritis, right knee; Z96.651 Presence of right artificial knee joint; Z85.41 Personal history of malignant neoplasm of cervix uteri; Z79.899 Other long term (current) drug therapy; Z87.891 Personal history of nicotine dependence | CPT/HCPCS: 99204 ==

== ENCOUNTER 2022-02-05 09:54 | Emergency (ER) | payer MEDICARE, SELFPAY ==
[2022-02-05 10:22] VITALS: BP 173/95; PULSE 93; RESP 18; TEMP 36.7; O2SAT 93; BMI 29.4
--- NOTE | 2022-02-05 11:18 | USCV_ITS ---
Romana Garner Age: 81 Gender: F : 1940 Exam Date: 02/05/2022 12:00 Ordering Phys: Lencho Trent Technologist: ESTUARDO Exam Location: [facility] [place] Indication: leg swelling/discoloration HISTORY: rt leg discoloration, lt leg swelling x 1 month. Lt leg ablation PROCEDURES: Venous duplex imaging was performed in bilateral lower extremities. CONCLUSIONS No evidence of right lower extremity DVT. No evidence of left lower extremity DVT. Han Hanna MD (Electronically Signed) Final Date: 05 February 2022 15:22 S
[2022-02-05 11:57] VITALS: BP 165/82; PULSE 81; RESP 16; TEMP 36.6; O2SAT 91
[2022-02-05 12:41] VITALS: BP 144/79; PULSE 80; RESP 16; TEMP 36.7; O2SAT 93
[2022-02-05 14:10] VITALS: BP 137/84; PULSE 81; RESP 16; TEMP 36.6; O2SAT 96
--- NOTE | 2022-02-05 14:43 | PC.NURSE ---
Patient called from waiting room no answer
== END 2022-02-05 14:45 | disposition left against medical advice (07) ==
PROVIDERS: Emergency Provider Family Medicine
DX: Z53.21 Procedure and treatment not carried out due to patient leaving prior to being seen by health care provider (principal)
CPT/HCPCS: 93970; 99284

== ENCOUNTER → 2022-03-09 10:18 | Outpatient (BNVA) | payer MEDICARE, SELFPAY | PROVIDERS: Visit Provider Orthopaedic Surgery | DX: M17.12 Unilateral primary osteoarthritis, left knee (principal); Z96.651 Presence of right artificial knee joint | CPT/HCPCS: 73560; 73565; 99213 ==

== ENCOUNTER 2022-03-26 09:14 | Oncology outpatient (recurring) (ONCR) | payer MEDICARE, SELFPAY ==
[2022-03-26 09:48] LABS: Basophils % 0.5 %; Eosinophils # 0.1 10^3/uL (0.0-0.8); Eosinophils % 1.4 %; Hematocrit 44.9 % (37.0-47.0); Hemoglobin 14.8 g/dL (11.5-15.3); Lymphocytes # 1.5 10^3/uL (0.8-4.8); Lymphocytes % 22.5 %; Mean Corpuscular Volume 90.9 fl (81-99); Mean Platelet Volume 9.4 fL (7.4-10.4); Monocytes # 0.6 10^3/uL (0.2-0.9); Monocytes % 9.7 %; Neutrophils # 4.27 10^3/uL (1.8-7.7); Neutrophils % 65.4 %; Nucleated Red Blood Cells % 0 %; Platelet Count 274 10^3/cmm (130-400); Red Blood Count 4.94 10^6/uL (4.1-5.3); Red Cell Distribution Width 13.2 % (12.1-15.1); White Blood Count 6.5 10^3/uL (4.0-10.0)
[2022-03-26 10:35] LABS: Carcinoembryonic Antigen 2.1 ng/mL (0.0-4.7)
[2022-03-26 10:49] LABS: Alanine Aminotransferase 23 U/L (0-33); Albumin Level 4.3 g/dL (3.5-5.2); Alkaline Phosphatase 98 U/L (35-105); Aspartate Amino Transferase 22 U/L (0-32); Blood Urea Nitrogen 13 mg/dL (8-23); Carbon Dioxide 24 mmol/L (22-29); Chloride 103 mmol/L (98-107); Globulin 3.2 g/dL (1.3-4.6); Glucose 95 mg/dL (65-115); Osmolality Calculated 294 mOsm/kg (285-295); Sodium 142 mmol/L (136-145); Total Bilirubin 0.4 mg/dL (0.15-1.2); Total Protein 7.5 g/dL (6.6-8.7)
== END 2022-04-19 23:59 | disposition home or self-care (01) ==
PROVIDERS: Visit Provider Internal Medicine Hematology & Oncology
DX: Z87.891 Personal history of nicotine dependence; Z08 Encounter for follow-up examination after completed treatment for malignant neoplasm; Z85.038 Personal history of other malignant neoplasm of large intestine; Z90.49 Acquired absence of other specified parts of digestive tract
CPT/HCPCS: 36415; 80053; 82378; 85025; 99213; 99214

== ENCOUNTER → 2023-11-30 10:03 | Outpatient (BNVA) | payer MEDICARE, SELFPAY | PROVIDERS: PCP Family Medicine; Visit Provider Nurse Practitioner Family | DX: R07.81 Pleurodynia (principal); R07.9 Chest pain, unspecified | CPT/HCPCS: 71046 ==

== ENCOUNTER 2024-02-06 07:54 | Outpatient (CLI) | payer MEDICARE, SELFPAY ==
--- NOTE | 2024-02-06 08:30 | US_ITS ---
WS: [id number] ULTRASOUND ABDOMEN LIMITED CLINICAL INFORMATION: R10.11 - Right upper quadrant pain COMPARISON: None. FINDINGS: Liver Size: Mild hepatomegaly. Craniocaudal length: 15.7 cm. Echogenicity: Normal. Surface nodularity: None. Mass (size and location): None. Bile ducts Intrahepatic ducts: Normal. Common bile duct diameter: See impression Gallbladder Sludge Gallstones: None. Gallbladder sludge: Present Gallbladder wall thickenin mm Pericholecystic fluid: None. Sonographic Paul sign: Absent. Pancreas Normal as visualized. Right kidney: Normal. Hydronephrosis: None. Size: 9.3 cm x 4.3 cm x 4.0 cm. Abdominal aorta and IVC Visualized portions are normal. Ascites: None. US/US gall bladder [id number] IMPRESSION: 1. Gallbladder sludge extending into the gallbladder neck. Mild gallbladder wa ll thickening. No pericholecystic fluid. 2. Dilated cystic structure which may resent patulous common bile duct or inte rposed bowel measuring 1.6 cm. Recommend further evaluation with MRCP. 3. Mild hepatomegaly. 4. No hydronephrosis in the RIGHT kidney.
== END 2024-02-06 07:55 | disposition home or self-care (01) ==
LOC: RAD 07:55
PROVIDERS: PCP Family Medicine; Visit Provider Family Medicine
DX: R10.11 Right upper quadrant pain (principal); R16.0 Hepatomegaly, not elsewhere classified
CPT/HCPCS: 76705

== ENCOUNTER → 2024-02-13 07:34 | Outpatient (BNVA) | payer MEDICARE, SELFPAY | PROVIDERS: PCP Family Medicine; Referring Provider Family Medicine; Visit Provider Surgery | DX: K81.9 Cholecystitis, unspecified (principal) | CPT/HCPCS: 99204 ==

== ENCOUNTER → 2024-03-02 09:17 | Outpatient (BNVA) | payer MEDICARE, SELFPAY | PROVIDERS: PCP Family Medicine; Visit Provider Family Medicine | DX: Z01.818 Encounter for other preprocedural examination (principal); I21.19 ST elevation (STEMI) myocardial infarction involving other coronary artery of inferior wall; I49.8 Other specified cardiac arrhythmias | CPT/HCPCS: 80053; 85025; 93005 ==

== ENCOUNTER 2024-03-06 09:02 | Day surgery (SDC) | payer MEDICARE, SELFPAY ==
[2024-03-06] VITALS (13 sets, daily range): BP systolic 101–135; BP diastolic 54–101; PULSE 74–106; RESP 14–24; TEMP 36.3–37.4; O2SAT 91–98; BMI 25.0
--- NOTE | 2024-03-06 09:31 | W.PM.OPSUD ---
Surgery/Procedure H&P Update DATE OF PROCEDURE: March 06, 2024 DATE H&P PERFORMED: 02/13/24 H&P UPDATE INFORMATION: I have reviewed H&P completed within last 30 days, I have examined patient prior to procedure and No changes to prior documentation PLANNED PROCEDURE: Operation Date: 03/06/24 11:00 Proposed Procedures p Laparoscopic Cholecystectomy with intraoperative cholangiogram 68047, K81.9(Not Applicable) - Logan Pacheco, DO
[2024-03-06] MEDS: sodium chloride 0.9% 1,000 ML 30 ML IV (09:57)
--- NOTE | 2024-03-06 10:15 | ANES.PREANE2 ---
Pre-Anesthetic Assessment Height/Weight: Height 5 ft 5 in Weight 150 lb Temp Pulse Resp BP Pulse Ox O2 Del Method 99.3 F 106 H 18 130/101 94 Room Air 03/06/24 09:25 03/06/24 09:25 03/06/24 09:25 03/06/24 09:25 03/06/24 09:25 03/06/24 09:25 Preop Diagnosis: Cholecystitis Operation Date: 03/06/24 11:00 Proposed Procedures p Laparoscopic Cholecystectomy with intraoperative cholangiogram 10561, K81.9(Not Applicable) - Logan Pacheco DO Last intake: Intake Last Liquid Date 03/05/24 Last Liquid Time 19:00 Last Solid Date 03/05/24 Last Solid Time 19:00 Social No alcohol and No tobacco Exam alert, oriented x 3, clear to auscultation bilaterally and regular rate & rhythm Airway Submandibular: within normal limits Cervical ROM: within normal limits Mallampati: Class III Dentition: full Anesthetic Plan ASA status: 2 Anesthesia: General Other: No prior issues with anesthesia NPO since midnight History of hypertension, controlled with amlodipine Denies any pulmonary issues METs greater than 4 Labs reviewed 03/02 and acceptable for surgery. Potassium 3.0, sodium 135 at that time Plan for GETA Medications/Allergies Home Medications Medication Instructions Recorded Confirmed Last Taken Type amlodipine 10 mg tablet 10 mg PO BEDTIME #90 tabs 05/06/23 03/06/24 03/05/24 19:00 Rx tramadol 50 mg tablet 50 mg PO TID PRN pain #20 tabs 01/10/24 03/06/24 03/05/24 19:00 Rx Allergies Allergy/AdvReac Type Severity Reaction Status Date / Time atenolol Allergy Unknown Unknown Verified 03/06/24 09:21 gluten Allergy Unknown Unknown Verified 03/06/24 09:21 Iodinated Contrast Media Allergy Unknown Unknown Verified 03/06/24 09:21 losartan Allergy Unknown Unknown Verified 03/06/24 09:21 naproxen Allergy Unknown Unknown Verified 03/06/24 09:21 peanut Allergy Unknown Unknown Verified 03/06/24 09:21 Current Medications Generic Name Dose Route Start Last Admin Trade Name Freq PRN Reason Stop Dose Admin Sodium Chloride 1,000 mls @ 30 mls/hr 03/06/24 09:15 03/06/24 09:57 Sodium Chloride 0.9% IV 03/07/24 09:14 30 mls/hr .Q24H IVAN Administration PFSH Anesthesia Medical History Diabetes mellitus History of cervical cancer 1989 - Treated with radiation and chemotherapy Hx of colonic polyps [facility]- tumor removal 10/13/2021 Colon cancer Chest pain at rest CKD (chronic kidney disease) Varicose veins of left lower extremity with other complications HTN (hypertension) Surgical History S/P cataract surgery 2007 H/O eye surgery Macular hole repair 2005 Hx of knee surgery right - Hx of colonoscopy with polypectomy 09/2021 [facility] Family History Mother , at 79 from CHF Diabetes Congestive heart failure (CHF) CAD (coronary artery disease) Hypertension Father , at 83 from [place] Diabetes Myocardial infarction CAD (coronary artery disease) Hypertension Sister Dementia Denies family history of Clotting disorder Hyperlipidemia Psychiatric illness Chronic kidney disease (CKD) Suicide Anesthesia complication Bleeding disorder Lung disease Cancer Stroke Social History Smoking and tobacco/nicotine status: never used tobacco/nicotine Alcohol intake: never Data Anesthesia Cardiac Studies: No Data to Display
[2024-03-06] MEDS: ceFAZolin 2,000 mg SDV 2000 MG IVP (12:24)
[2024-03-06] MEDS: lidocaine-epi 2% PF 1:200,000 20 mL SDV 8 ML XX (12:55)
[2024-03-06] MEDS: iohexol 300 mg/mL 50 mL Btl XX (13:01)
--- NOTE | 2024-03-06 13:10 | XR_ITS ---
WS: [id number] Intraoperative cholangiogram. HISTORY: Intraoperative imaging during cholecystectomy. COMPARISON: Gallbladder ultrasound 02/06/2024. Dr. Pacheco injected the cystic duct during the cholecystectomy. There is a large amount of contrast filling a dilated common bile duct with abrupt termination of the contrast column towards the pancre atic head and ampulla of Vater. There is no tapering as typically seen with a stricture. Cystic duct also appears very slightly prominent. There is intrahepatic duct dilatation also. There is a small am ount of contrast extending along the medial distal common bile duct. XR/XR abdomen 3V [id number] IMPRESSION: Intraoperative cholangiogram demonstrates significant dilatation of the common bile duct and intrahepatic ducts. There is an abrupt termination of the contras t column. This is most typically seen with an obstructing mass. There is a smal l amount of contrast extending distally along the medial common bile duct. Dr. Pacheco thought there was probably a high-grade stricture present. Further tyrel luation of the common bile duct and pancreas need to be obtained. Recommend ERC P. CT of the abdomen and pelvis with contrast would also provide additional inf ormation.
--- NOTE | 2024-03-06 14:03 | P.OP_ITS ---
Operative Report Date of procedure: March 06, 2024 Surgeon: Logan Pacheco DO Procedure: Preoperative diagnosis: Symptomatic cholelithiasis, dilated common bile duct Postoperative diagnosis: Chronic calculous cholecystitis, obstructed common bile duct Procedure performed: Laparoscopic cholecystectomy with intraoperative cholangiogram Surgeon: Dr. Logan Pacheco DO Estimated blood loss: 5 mL Specimens: Gallbladder to pathology Complications: None apparent Description of procedure: Patient was wheeled into the operative room and placed on the OR table in a supine position. Abdomen was inspected prepped and draped in usual sterile fashion. Time-out was performed and all present were in agreement. A 15 blade scalp was used to make a stab incision in the left upper quadrant and intra- abdominal insufflation was achieved using a Veress needle. After localizing the tissue incisions were made and a 5 millimeter trocar was placed into the umbilicus as well as 2 in the right upper quadrant. A 12 millimeter trocar was placed in the epigastrium. There were extremely dense adhesions between the gallbladder and omentum. These were taken down bluntly and sharply with electrocautery. Gallbladder was grasped and elevated. There was a layer of scar tissue around the gallbladder and down into the triangle of Calot that was about 1 cm thick. The triangle of Calot was carefully dissected using blunt dissection and electrocautery until the triangle of Calot clearly identified. The cystic duct was clipped proximally and partially transected just distal to the clip. Bile came out under pressure. I cholangiocatheter was placed into the duct and clipped into place. A cholangiogram was performed. Cholangiogram showed a significantly dilated common bile duct with stricture/obstruction distally. There was no passage of contrast into the duodenum. The cholangiocatheter was removed. The cystic duct was double clipped distally. The duct was then ligated proximally. The cystic artery was doubly clipped and ligated. The gallbladder was then removed from the liver bed using electrocautery. The gallbladder was removed from the abdomen using an Endo- Catch bag through the epigastric incision. The liver bed was inspected and no bleeding was seen. The abdomen was irrigated and suctioned. All ports removed. Skin was washed and dried. Incisions were closed with 4-0 Monocryl in a subcuticular interrupted fashion. Skin glue was applied. Patient tolerated the procedure well. Patient is being discharged from the outpatient surgery center and being sent to the ER for transferred to [facility] ER. She has been accepted by gastroenterology for ERCP.
[2024-03-06] MEDS: fentaNYL 50 mcg/mL INJ 2mL IVP ×2 (14:26→17:00)
--- NOTE | 2024-03-06 14:42 | P.TS_ITS ---
Transfer Summary Providers Date of Admission: Outpatient Date of Discharge/Transfer: 03/06/24 Attending Provider at Admission: Not admitted, Outpatient with Dr. Logan Pacheco Attending Provider at Transfer: Logan Pacheco DO Primary Care Provider: Brayan Blair DO Transfer Plans: Anticipated date of transfer: 03/06/24 . Receiving Facility: [facility] . Diagnoses at Discharge Discharge Diagnosis (1) Common bile duct obstruction: Status: Acute Reason for Visit Reason for Visit K81.9 Brief History: Here for outpatient cholecystectomy with intraoperative cholangiogram Hospital Course Hospital Course Patient presented for an outpatient cholecystectomy with intraoperative cholangiogram. Intraoperatively she was found to have dense scarring and adhesions surrounding the gallbladder and triangle of [place]. Intraoperative cholangiogram showed common bile duct dilatation with stricture distally and no passage of contrast into the duodenum. Patient was transferred to [facility] for ERCP in stable condition Physical Exam Narrative: General : Patient is well developed , no acute distress, oriented x3 Head : Normal cephalic, a-traumatic. Ears : Pinnae and external canal are normal. Hearing is normal. Eyes : PERRLA, Sclera and injection are normal. No conjunctival discharge. Nose : Mucous membranes are without erythema. Throat : buccal mucosa is normal, gums are without significant recession or hypertrophy. Lungs : Equal chest rise bilaterally, no use of accessory muscles, trachea is midline. Cor : Rate and rhythm are normal. Abdomen : Soft, ND, appropriately tender, no g/r/m Extremities : No edema, no cyanosis or clubbing, dorsalis pedis pulses are present bilaterally, non-tender to palpation of calves. Upper extremities are normal bilaterally. Back : non-tender to palpation, no CVA tenderness. Neuro : CN II - XII intact, Upper and lower extremities have equal and full strength TS Data Studies Completed and Pending Pending at discharge Category Date Time Status XR KUB portable [id number] Routine Exams 03/06/24 13:16 Taken Pathology: Surgical [PTH] Routine Pth 03/06/24 13:06 Ordered Completed Studies During Hospitalization Category Date Time Status XR abdomen 3V [id number] Routine Exams 03/06/24 13:10 Completed Radiology Impressions Abdomen X-Ray 03/06/24 13:10 IMPRESSION: Intraoperative cholangiogram demonstrates significant dilatation of the common bile duct and intrahepatic ducts. There is an abrupt termination of the contrast column. This is most typically seen with an obstructing mass. There is a small amount of contrast extending distally along the medial common bile duct. Dr. Dominik freedman thought there was probably a high-grade stricture present. Further evaluation of the common bile duct and pancreas need to be obtained. Recommend ERCP. CT of the abdomen and pelvis with contrast would also provide additional information. Recent Clincial Data Last Vital Signs Temp 98 F 03/06/24 14:12 Pulse 74 03/06/24 14:12 Resp 17 03/06/24 14:26 BP 133/60 03/06/24 14:12 Pulse Ox 93 03/06/24 14:12 O2 Del Method Nasal Cannula 03/06/24 14:12 O2 Flow Rate 3 03/06/24 14:12 Vital Signs Temp Pulse Resp BP Pulse Ox O2 Del Method O2 Flow Rate 03/06/24 14:26 17 03/06/24 14:12 98 F 74 17 133/60 93 Nasal Cannula 3 03/06/24 14:07 97.4 F L 82 17 124/70 95 Nasal Cannula 3 03/06/24 14:02 80 20 H 135/61 98 Nasal Cannula 3 03/06/24 13:58 98.1 F 79 24 H 128/61 94 Nasal Cannula 3 03/06/24 13:53 83 22 H 135/60 91 Room Air 03/06/24 13:48 82 21 H 132/64 91 Room Air 03/06/24 13:43 85 24 H 126/60 93 Room Air 03/06/24 13:38 84 20 H 128/61 98 Simple Mask 6 03/06/24 13:34 81 21 H 117/60 97 Simple Mask 6 03/06/24 13:29 97.6 F 82 14 101/54 98 Simple Mask 6 03/06/24 13:29 6 03/06/24 09:25 Room Air 03/06/24 09:25 99.3 F 106 H 18 130/101 94 Room Air Intake & Output/Weight 03/04/24 03/05/24 03/06/24 03/07/24 06:59 06:59 06:59 06:59 Intake Total 50 / 50 Output Total Balance 35 / 35 Weight 150 lb Procedures Performed Laparoscopic cholecystectomy with intraoperative cholangiogram Vitals Last Vital Signs Temp 98 F 03/06/24 14:12 Pulse 74 03/06/24 14:12 Resp 17 03/06/24 14:26 BP 133/60 03/06/24 14:12 Pulse Ox 93 03/06/24 14:12 O2 Del Method Nasal Cannula 03/06/24 14:12 O2 Flow Rate 3 03/06/24 14:12 TS Medications Medications Albuterol Sulfate (Albuterol 2.5 Mg/3 Ml Neb) 2.5 mg INHALATION ONCE PRN PRN Reason: WHEEZING Dexamethasone (Dexamethasone 4 Mg/Ml Inj) 4 mg IVP Q5M PRN PRN Reason: Nausea unrelieved by Reglan Stop: 03/07/24 13:13 Famotidine (Famotidine 20 Mg/2 Ml Inj) 20 mg IVP ONCE PRN PRN Reason: HEARTBURN Fentanyl (Fentanyl 50 Mcg/Ml Inj 2ml) 50 mcg IVP Q10M PRN PRN Reason: Preop Pain Fentanyl (Fentanyl 50 Mcg/Ml Inj 2ml) 100 mcg IVP ONCE PRN PRN Reason: Per anesthesia for block Fentanyl (Fentanyl 50 Mcg/Ml Inj 2ml) 50 mcg IVP Q5M PRN PRN Reason: Pain level 6-10 PACU Phase I Stop: 03/07/24 13:13 Last Admin: 03/06/24 14:26 Dose: 50 mcg Hydromorphone HCl (Hydromorphone 1 Mg/Ml Inj 1 Ml) 0.25 mg IVP Q10M PRN PRN Reason: Pain level 4-6 PACU Phase I Stop: 03/07/24 13:13 Hydromorphone HCl (Hydromorphone 1 Mg/Ml Inj 1 Ml) 0.5 mg IVP Q10M PRN PRN Reason: Pain level 7-10 PACU Phase I Stop: 03/07/24 13:13 Sodium Chloride (Sodium Chloride 0.9%) 1,000 mls @ 30 mls/hr IV .Q24H IVAN Stop: 03/07/24 09:14 Last Admin: 03/06/24 09:57 Dose: 30 mls/hr Sodium Chloride (Sodium Chloride 0.9%) 500 mls @ 999 mls/hr IV .Q31M PRN PRN Reason: HYPOTENSION Ipratropium [place] (Ipratropium 0.5 Mg/2.5 Ml Neb) 0.5 mg INHALATION ONCE PRN PRN Reason: WHEEZING Lidocaine HCl (Lidocaine 1% Inj 20 Ml) 0.1 ml INTRADERMA PRN PRN PRN Reason: anesthetic prior to IV start Stop: 03/07/24 09:14 Meperidine HCl (Meperidine 50 Mg/Ml Inj) 12.5 mg IVP Q5M PRN PRN Reason: Shivering PACU Phase I Stop: 03/07/24 13:13 Metoclopramide HCl (Metoclopramide 5 Mg/Ml Sdv 2 Ml) 10 mg IVP ONCE PRN PRN Reason: N/V if zofran ineffective Metoclopramide HCl (Metoclopramide 5 Mg/Ml Sdv 2 Ml) 10 mg IVP Q5M PRN PRN Reason: Nausea unrelieved by Zofran Stop: 03/07/24 13:13 Midazolam HCl (Midazolam 1 Mg/Ml Inj 2 Ml) 2 mg IVP Q5M PRN PRN Reason: Preop Anxiety Midazolam HCl (Midazolam 1 Mg/Ml Inj 5 Ml) 5 mg IVP ONCE PRN PRN Reason: Per anesthesia for block Morphine Sulfate (Morphine 4 Mg/Ml Sdv 1 Ml) 0 mg IVP Q5M PRN PRN Reason: Breakthrough Pain PACU PhaseII Morphine Sulfate (Morphine 4 Mg/Ml Sdv 1 Ml) 2 mg IVP Q2M PRN PRN Reason: Pain level 6-10 PACU Phase I Stop: 03/07/24 13:13 Morphine Sulfate (Morphine 4 Mg/Ml Sdv 1 Ml) 2 mg IVP Q5M PRN PRN Reason: Pain level 2-5 PACU Phase I Stop: 03/07/24 13:13 Ondansetron HCl (Ondansetron 2 Mg/Ml Sdv 2 Ml) 4 mg IVP Q5M PRN PRN Reason: NAUSEA AND VOMITING Ondansetron HCl (Ondansetron 2 Mg/Ml Sdv 2 Ml) 4 mg IVP Q15M PRN PRN Reason: Nausea/Vomiting PACU PHASE II Ondansetron HCl (Ondansetron 2 Mg/Ml Sdv 2 Ml) 4 mg IVP Q5M PRN PRN Reason: Nausea PACU Phase I Stop: 03/07/24 13:13 Scopolamine (Scopolamine 1.5 Patch) 1 patch TRANSDERMA ONCE PRN PRN Reason: Nausea/ Vomiting Prophylaxis Discontinued Medications Artificial Tears (Artificial Tears Op Oint 3.5 Gm) Confirm Administered Dose [address] ONE Stop: 03/06/24 13:16 Cefazolin Sodium (Cefazolin 2,000 Mg Sdv) 2,000 mg IVP [employer] ONE; Protocol Stop: 03/06/24 09:16 Last Admin: 03/06/24 12:24 Dose: 2,000 mg Dexamethasone (Dexamethasone 4 Mg/Ml Inj) Confirm Administered Dose [address] ONE Stop: 03/06/24 11:09 Diphenhydramine HCl (Diphenhydramine 50 Mg/Ml Sdv 1ml) Confirm Administered Dose 50 mg .ROUTE .[facility] ONE Stop: 03/06/24 13:03 Fentanyl (Fentanyl 50 Mcg/Ml Inj 2ml) Confirm Administered Dose [address] mcg [address] ONE Stop: 03/06/24 12:13 Fentanyl (Fentanyl 50 Mcg/Ml Inj 20ml) Confirm Administered Dose 1,[address] ONE Stop: 03/06/24 12:46 Fentanyl (Fentanyl 50 Mcg/Ml Inj 2ml) Confirm Administered Dose [address] m[address] ONE Stop: 03/06/24 12:47 Glycopyrrolate (Glycopyrrolate 0.2 Mg/Ml Sdv 2 Ml) Confirm Administered Dose 0.4 mg .ROUTE .[facility] ONE Stop: 03/06/24 13:11 Iohexol (Iohexol 300 Mg/Ml 50 Ml Btl) 50 ml XX ONCE ONE Stop: 03/06/24 13:00 Last Admin: 03/06/24 13:01 Dose: 50 ml Lidocaine/Epinephrine (Lidocaine-Epi 2% Pf 1:200,000 20 Ml Sdv) Confirm Administered Dose 20 ml .ROUTE .[facility] ONE Stop: 03/06/24 11:36 Lidocaine/Epinephrine (Lidocaine-Epi 2% Pf 1:200,000 20 Ml Sdv) 8 ml XX ONCE ONE Stop: 03/06/24 12:01 Last Admin: 03/06/24 12:55 Dose: 8 ml Neostigmine Methylsulfate (Neostigmine 1 Mg/Ml Sdv 10 Ml) Confirm Administered Dose 10 mg .ROUTE .[facility] ONE Stop: 03/06/24 13:11 Ondansetron HCl (Ondansetron 2 Mg/Ml Sdv 2 Ml) Confirm Administered Dose 4 mg .ROUTE .[facility] ONE Stop: 03/06/24 11:09 Propofol (Propofol 10 Mg/Ml Sdv 20 Ml) Confirm Administered Dose 200 mg .ROUTE .[facility] ONE Stop: 03/06/24 11:11 Rocuronium [place] (Rocuronium 10 Mg/Ml Inj 5ml) Confirm Administered Dose 50 mg .ROUTE .[facility] ONE Stop: 03/06/24 11:09 Allergies atenolol Allergy (Unknown, Verified 03/06/24 09:21) Unknown gluten Allergy (Unknown, Verified 03/06/24 09:21) Unknown Iodinated Contrast Media Allergy (Unknown, Verified 03/06/24 09:21) Unknown patient reports hives to contrast 30 yrs ago, tolerated CT 08/2019 with benadryl without symptoms losartan Allergy (Unknown, Verified 03/06/24 09:21) Unknown naproxen Allergy (Unknown, Verified 03/06/24 09:21) Unknown peanut Allergy (Unknown, Verified 03/06/24 09:21) Unknown Home Medications amlodipine 10 mg tablet 10 mg PO BEDTIME #90 tabs 05/06/23 [Rx Confirmed 03/06/24] tramadol 50 mg tablet 50 mg PO TID PRN pain #20 tabs 01/10/24 [Rx Confirmed 03/06/24] docusate sodium 100 mg capsule (Colace) 100 mg PO BID #14 caps 03/06/24 [Rx] hydrocodone 7.5 mg-acetaminophen 325 mg tablet 1 tab PO Q6H PRN pain #20 tabs 03/06/24 [Rx] polyethylene glycol 3350 17 gram/dose oral powder (Miralax) 17 g PO DAILY 7 days #119 grams 03/06/24 [Rx] Discharge Plan Discharge Patient Disposition: Home Prescriptions: New hydrocodone-acetaminophen 7.5-325 mg tablet 1 tab PO Q6H PRN (Reason: pain) Qty: 20 0RF Colace 100 mg capsule 100 mg PO BID Qty: 14 0RF Miralax 17 gram/dose powder 17 g PO DAILY 7 Days Qty: 119 0RF Continued amlodipine 10 mg tablet 10 mg PO BEDTIME Qty: 90 3RF Held tramadol 50 mg tablet 50 mg PO TID PRN (Reason: pain) Qty: 20 1RF Hold Instructions: Resume on 03/11/24. Discharge Orders: Discharge Order (Routine); Ordered 03/06/24 Ordered By: Logan Pacheco Referrals: Logan Pacheco DO [Physician] - 03/19/24 8:15 am Discharge Diet: Advance as tolerated Discharge Activity: Resume usual activity Patient Instructions: Acute Wound Care (DC), Post Anesthesia Care Activity Restrictions/Additional Instructions: Do not soak incisions underwater for 2 weeks. Shower regularly. Transfer Attestations Time Spent in Transfer Care: less than 30 min Quality Metrics Clinical Quality Measures [ No reported AMI, CVA or VTE this stay] Coding Level of Care Code Acute Code for Chg Fwd Diagnoses Common bile duct obstruction K83.1
--- NOTE | 2024-03-06 15:24 | SUR.PHASEII ---
1455 report called to [facility] to [facility]. Awaiting [facility] to bulk picker to go to other hospital 1510 assisted up to [facility] and voided a small amt of foul smelling urine,depends and pad put on pt per her request
--- NOTE | 2024-03-06 16:28 | SUR.PHASEII ---
[address] [facility] stated that the team just came back from [facility] and was in the process of fueling up 1620 pt up to bathroom and O2 sat on room air 94-95%
--- NOTE | 2024-03-06 16:46 | SUR.PHASEII ---
1645 O2 sat dipped down to 89% on room air [id number] applied and o2 sat 97-98%
--- NOTE | 2024-03-06 17:21 | SUR.PHASEII ---
1720 [facility] via [facility].1725 call placed to regarding pt's departure and phone number to ER per pt and spouse's request
== END 2024-03-06 17:20 | disposition home or self-care (01) ==
PROVIDERS: PCP Family Medicine; Visit Provider Surgery
PROC: 0FT44ZZ Resection of Gallbladder, Percutaneous Endoscopic Approach (ICD-10-PCS; CPT 47562; principal; 2024-03-06 11:00)
DX: C23 Malignant neoplasm of gallbladder (principal); K83.1 Obstruction of bile duct; Z85.41 Personal history of malignant neoplasm of cervix uteri; E11.22 Type 2 diabetes mellitus with diabetic chronic kidney disease; I12.9 Hypertensive chronic kidney disease with stage 1 through stage 4 chronic kidney disease, or unspecified chronic kidney disease; N18.9 Chronic kidney disease, unspecified; Z87.891 Personal history of nicotine dependence
CPT/HCPCS: 47562; 74018; 74021; 76000; 88304; 88342; J0690; J1100; J1200; J2405; J2704; J2710; J3010; J3490; J7030; Q9967